=== PATIENT | female | born 1985 | race Two or more races ===

== ENCOUNTER 2017-11-17 09:09 | Day surgery (SDC) | payer OTHER ==
[~2017-11-17 09:09] MED LIST: DULERA 100 MCG/13 GM; PROAMATINE2.5 MG; SINGULAIR10 MG PO; SYMBICORT 16010.2 GM IH
[2017-11-17] MEDS ORDERED: CODE1TAB37 PO (14:31)
[2017-11-17] MEDS ORDERED: DOXYCYCLINE HY100 MG PO (14:31)
== END 2017-11-17 18:20 | disposition home or self-care (01) ==
LOC: CIR.AMB 09:09
DX: O02.0 Blighted ovum and nonhydatidiform mole (principal)

== ENCOUNTER 2018-09-04 09:49 | Outpatient (CLI) | payer OTHER ==
[~2018-09-04 09:49] MED LIST changes: +CODE1TAB37 PO; +DOXYCYCLINE HY100 MG PO
== END 2018-09-04 11:15 | disposition home or self-care (01) ==
LOC: PRENATAL 09:49
DX: O28.1 Abnormal biochemical finding on antenatal screening of mother (principal)

== ENCOUNTER 2020-05-28 12:12 | Outpatient (CLI) | payer OTHER | END 2020-05-28 12:52 | disposition home or self-care (01) | LOC: NST 12:12 | PROVIDERS: ATTEND Obstetrics & Gynecology Maternal & Fetal Medicine | DX: Z34.83 Encounter for supervision of other normal pregnancy, third trimester (principal) ==

== ENCOUNTER 2020-07-17 12:30 | Inpatient (IN) | payer OTHER ==
[~2020-07-17] VITALS: Ht 160 cm; Wt 2.7 kg
[2020-08-06] MEDS ORDERED: SYNALAR60 ML TOP (00:48)
[2020-08-06] MEDS ORDERED: PRENATAL TABLE1 EAC1 PO (00:48)
[2020-08-06] MEDS ORDERED: DYMISTA NASAL S23 GM NS (00:49)
[2020-08-06] MEDS ORDERED: ST. JOSEPH ASPI81 M2 (13:13)
[2020-08-06] MEDS ORDERED: CETIRIZINE HCL10 MG (13:13)
[2020-08-06] MEDS ORDERED: MONTELUKAST SOD10 MG (13:13)
== END 2020-08-09 13:48 | disposition home or self-care (01) | DRG 788 ==
LOC: LDR 08-06 00:29 → OB/GYN 08-06 17:20
PROVIDERS: ADMIT Obstetrics & Gynecology Maternal & Fetal Medicine; ATTEND Obstetrics & Gynecology Maternal & Fetal Medicine
PROC: 3E033VJ Introduction of Other Hormone into Peripheral Vein, Percutaneous Approach (ICD-10-PCS; 2020-08-06)
PROC: 4A1HXFZ Monitoring of Products of Conception, Cardiac Rhythm, External Approach (ICD-10-PCS; 2020-08-06)
PROC: 10D00Z1 Extraction of Products of Conception, Low, Open Approach (ICD-10-PCS; principal; 2020-08-06 18:30)
DX: O76 Abnormality in fetal heart rate and rhythm complicating labor and delivery (principal); O61.0 Failed medical induction of labor; O26.893 Other specified pregnancy related conditions, third trimester; O99.824 Streptococcus B carrier state complicating childbirth; Z3A.39 39 weeks gestation of pregnancy; Z37.0 Single live birth; Z67.41 Type O blood, Rh negative

== ENCOUNTER 2020-07-31 10:55 | Outpatient (CLI) | payer OTHER | END 2020-07-31 11:30 | disposition home or self-care (01) | LOC: NST 10:55 | PROVIDERS: ATTEND Obstetrics & Gynecology Maternal & Fetal Medicine | DX: Z34.83 Encounter for supervision of other normal pregnancy, third trimester (principal) ==

== ENCOUNTER → 2020-08-05 | Outpatient (CLI) | payer OTHER ==
[~2020-08-05] MED LIST changes: +CETIRIZINE HCL10 MG; +DYMISTA NASAL S23 GM NS; +MONTELUKAST SOD10 MG; +PRENATAL TABLE1 EAC1 PO; +ST. JOSEPH ASPI81 M2; +SYNALAR60 ML TOP
== END | disposition home or self-care (01) ==
LOC: OBS/DEL 20:23
PROVIDERS: ATTEND Obstetrics & Gynecology Maternal & Fetal Medicine
DX: O47.1 False labor at or after 37 completed weeks of gestation (principal); Z3A.39 39 weeks gestation of pregnancy